=== PATIENT | female | born 1960 ===

== ENCOUNTER 2021-02-26 08:17 | Outpatient (CLI) | payer OTHER | END 2021-02-26 08:28 | disposition home or self-care (01) | LOC: TOM 08:17 | PROVIDERS: ATTEND Otolaryngology Otology & Neurotology | DX: M89.8X8 Other specified disorders of bone, other site (principal); R42 Dizziness and giddiness; H90.3 Sensorineural hearing loss, bilateral ==

== ENCOUNTER 2021-03-17 08:34 | Outpatient (CLI) | payer OTHER | END 2021-03-17 09:07 | disposition home or self-care (01) | LOC: OFIC 805 08:34 | PROVIDERS: ATTEND Otolaryngology Otology & Neurotology | DX: H90.3 Sensorineural hearing loss, bilateral (principal); R42 Dizziness and giddiness ==

== ENCOUNTER 2021-04-09 11:24 | Outpatient (CLI) | payer OTHER | END 2021-04-09 11:35 | disposition home or self-care (01) | LOC: MAMO-SONO 11:24 | PROVIDERS: ATTEND Obstetrics & Gynecology | DX: N60.11 Diffuse cystic mastopathy of right breast (principal); N60.12 Diffuse cystic mastopathy of left breast; N64.59 Other signs and symptoms in breast; Z12.31 Encounter for screening mammogram for malignant neoplasm of breast ==

== ENCOUNTER 2022-04-01 09:13 | Outpatient (CLI) | payer OTHER | END 2022-04-01 09:43 | disposition home or self-care (01) | LOC: SONOGRAMA 09:13 | PROVIDERS: ATTEND Internal Medicine Gastroenterology | DX: R10.9 Unspecified abdominal pain (principal) ==

== ENCOUNTER 2023-01-20 09:08 | Outpatient (CLI) | payer OTHER | END 2023-01-20 09:20 | disposition home or self-care (01) | LOC: TOM 09:08 | PROVIDERS: ATTEND Otolaryngology Otolaryngology/Facial Plastic Surgery | DX: H90.3 Sensorineural hearing loss, bilateral (principal); H70.12 Chronic mastoiditis, left ear ==

== ENCOUNTER 2023-02-10 07:03 | Outpatient (CLI) | payer OTHER | END 2023-02-10 08:00 | disposition home or self-care (01) | LOC: TOM 07:03 | PROVIDERS: ATTEND Psychiatry & Neurology Clinical Neurophysiology | DX: G30.1 Alzheimer's disease with late onset (principal) ==

== ENCOUNTER 2023-03-20 08:43 | Outpatient (CLI) | payer OTHER | END 2023-03-20 08:57 | disposition home or self-care (01) | LOC: MAMO-SONO 08:43 | PROVIDERS: ATTEND Surgery | DX: N60.11 Diffuse cystic mastopathy of right breast (principal); N60.12 Diffuse cystic mastopathy of left breast ==

== ENCOUNTER 2023-08-24 09:58 | Outpatient (CLI) | payer OTHER | END 2023-08-24 10:01 | disposition home or self-care (01) | LOC: SONOGRAMA 09:58 | PROVIDERS: ATTEND Internal Medicine Cardiovascular Disease | DX: M12.9 Arthropathy, unspecified (principal) ==

== ENCOUNTER 2023-11-06 08:38 | Outpatient (CLI) | payer OTHER | END 2023-11-06 08:49 | disposition home or self-care (01) | LOC: SONOGRAMA 08:38 | PROVIDERS: ATTEND Internal Medicine Gastroenterology | DX: R10.9 Unspecified abdominal pain (principal) ==

== ENCOUNTER 2025-03-26 08:04 | Outpatient (CLI) | payer OTHER | END 2025-03-26 08:15 | disposition home or self-care (01) | LOC: MAMO-SONO 08:04 | PROVIDERS: ATTEND Internal Medicine Cardiovascular Disease | DX: N60.11 Diffuse cystic mastopathy of right breast (principal); N60.12 Diffuse cystic mastopathy of left breast; Z12.31 Encounter for screening mammogram for malignant neoplasm of breast ==